=== PATIENT | male | born 1965 | race Caucasian/White ===

== ENCOUNTER 2016-05-15 02:26 | Emergency (ER) | payer OTHER ==
[~2016-05-15] VITALS: Ht 162.6 cm; Wt 61.2 kg
[~2016-05-15 02:26] MED LIST: OLAN5TAB3
[2016-05-15 03:47] LABS: BASOPHILS # (AUTO) 0.1 /CMM (0.0-0.2); DIFF TOTAL % 100 %; EOSINOPHILS # (AUTO) 0.2 /CMM (0.0-0.7); EOSINOPHILS % (AUTO) 3.6 % (0.0-6.0); HEMATOCRIT 42 % (39-51); HEMOGLOBIN 14.3 g/dL (13.5-17.5); MEAN CORPUSCULAR HEMOGLOBIN 34 PG (26.0-33.0); MEAN CORPUSCULAR HGB CONC 35 g/dl (31.0-36.0); MEAN CORPUSCULAR VOLUME 98 fL (80-96); MONOCYTES # (AUTO) 0.5 /CMM (0.1-1.30); MONOCYTES % (AUTO) 9.9 % (2.0-12.0); NEUTROPHILS # (AUTO) 2.7 /CMM (1.8-8.9); NEUTROPHILS % (AUTO) 48.5 % (43.0-81.0); PLATELET COUNT (AUTO) 257 /CMM (150-450); RED BLOOD CELL COUNT(AUTO) 4.25 MIL/uL (4.5-6.0); WHITE BLOOD COUNT (AUTO) 5.5 K/uL (4.3-11.0)
[2016-05-15 03:54] LABS: ADD UA MICROSCOPIC NO; KETONES,URINE NEGATIVE (NEGATIVE); LEUKOCYTE ESTERASE ,URINE NEGATIVE (NEGATIVE)
[2016-05-15 04:07] LABS: ALANINE AMINOTRANSFERASE 42 U/L (12-78); ALBUMIN 3.6 g/dL (3.4-5.0); ANION GAP 12 (5-14); ASPARTATE AMINOTRANSFERASE 16 U/L (15-37); BILIRUBIN,DIRECT 0.1 mg/dL (0.0-0.2); BILIRUBIN,TOTAL 0.4 mg/dL (0.2-1.0); CALCIUM, SERUM 8.7 mg/dL (8.5-10.1); CARBON DIOXIDE 28 mmol/L (21-32); CHLORIDE 103 mmol/L (98-107); CREATININE 1.2 mg/dL (0.6-1.3); GFR 64 mL/min (>60); GLUCOSE 112 mg/dL (74-106); INDIRECT BILIRUBIN 0.3 mg/dL (0.0-1.1); POTASSIUM 3.7 mmol/L (3.5-5.1); SALICYLATE 3.2 mg/dL (2.8-20.0); SODIUM SERUM 139 mmol/L (136-145); TOTAL PROTEIN, SERUM 7.2 g/dL (6.4-8.2); UREA NITROGEN, BLOOD 10 mg/dL (7-18)
[2016-05-15 04:19] LABS: PHENCYCLIDINE SCREEN,URINE NEGATIVE (NEGATIVE)
[2016-05-15 04:27] LABS: CANNABINOID, URINE POSITIVE (NEGATIVE)
[2016-05-15 04:57] LABS: ACETAMINOPHEN 0 ug/ml (10-30)
[2016-05-15 06:55] VITALS: BP 156/96
== END 2016-05-15 06:06 | disposition home or self-care (01) ==
LOC: ER 02:26
DX: F32.9 Major depressive disorder, single episode, unspecified (principal); F19.10 Other psychoactive substance abuse, uncomplicated; B19.20 Unspecified viral hepatitis C without hepatic coma; K21.9 Gastro-esophageal reflux disease without esophagitis; F17.200 Nicotine dependence, unspecified, uncomplicated; F31.9 Bipolar disorder, unspecified
CPT/HCPCS: 36415; 80048-TC; 80076-TC; 80305; 81000-TC; 85025-TC; A4606; G0480; G6039-TC; Z7610

== ENCOUNTER 2016-07-04 18:57 | Emergency (ER) | payer OTHER ==
[~2016-07-04] VITALS: Ht 162.6 cm; Wt 61.2 kg
[2016-07-04 19:02] VITALS: BP 141/93
== END 2016-07-04 19:25 | disposition home or self-care (01) ==
LOC: ER 19:03
DX: R05 Cough (principal); K21.9 Gastro-esophageal reflux disease without esophagitis; F31.9 Bipolar disorder, unspecified; F17.210 Nicotine dependence, cigarettes, uncomplicated
CPT/HCPCS: 99283; 99406; A4606; Z7610

== ENCOUNTER 2016-08-31 13:26 | Emergency (ER) | payer OTHER ==
[~2016-08-31] VITALS: Ht 160 cm; Wt 68.0 kg
--- NOTE | 2016-08-31 14:02 | NUR ---
pt ambulatory to er bed 19. requesting med refill. anxious states suicidal w/ no specific plan at this time. states no meds for 7 days.placed on monitor. stable vitals. awaiting md danielle.
[2016-08-31 14:20] LABS: BASOPHILS % (AUTO) 0.4 % (0.0-2.0); EOSINOPHILS # (AUTO) 0.1 /CMM (0.0-0.7); HEMATOCRIT 41 % (39-51); HEMOGLOBIN 14.1 g/dL (13.5-17.5); MEAN CORPUSCULAR HEMOGLOBIN 33 PG (26.0-33.0); MEAN CORPUSCULAR HGB CONC 34 g/dl (31.0-36.0); MEAN CORPUSCULAR VOLUME 97 fL (80-96); MONOCYTES # (AUTO) 0.5 /CMM (0.1-1.30); MONOCYTES % (AUTO) 8.6 % (2.0-12.0); NEUTROPHILS # (AUTO) 3.2 /CMM (1.8-8.9); PLATELET COUNT (AUTO) 240 /CMM (150-450); RDW COEFFICIENT OF VARIATION 12.6 (11.5-15.0); RED BLOOD CELL COUNT(AUTO) 4.24 MIL/uL (4.5-6.0); WHITE BLOOD COUNT (AUTO) 5.8 K/uL (4.3-11.0)
[2016-08-31 14:30] LABS: CALCIUM, SERUM 8.9 mg/dL (8.5-10.1); CARBON DIOXIDE 30 mmol/L (21-32); CHLORIDE 104 mmol/L (98-107); CREATININE 1.1 mg/dL (0.6-1.3); GLUCOSE 128 mg/dL (74-106); POTASSIUM 3.5 mmol/L (3.5-5.1); SODIUM SERUM 138 mmol/L (136-145); UREA NITROGEN, BLOOD 18 mg/dL (7-18)
[2016-08-31 14:36] LABS: ACETAMINOPHEN < 10 ug/ml (10-30); ALANINE AMINOTRANSFERASE 48 U/L (12-78); ALBUMIN 3.9 g/dL (3.4-5.0); ALCOHOL, BLOOD < 3 mg/dL (0-0); ALKALINE PHOSPHATASE 66 U/L (46-116); ASPARTATE AMINOTRANSFERASE 32 U/L (15-37); BILIRUBIN,DIRECT 0.1 mg/dL (0.0-0.2); BILIRUBIN,TOTAL 0.5 mg/dL (0.2-1.0); SALICYLATE 2.1 mg/dL (2.8-20.0); TOTAL PROTEIN, SERUM 7.5 g/dL (6.4-8.2)
--- NOTE | 2016-08-31 14:38 | NUR ---
pt still unable to provide urine specimen at this time.
[2016-08-31 15:21] LABS: APPEARANCE,URINE Clear (CLEAR); BILIRUBIN,URINE Negative (NEGATIVE); BLOOD, URINE Negative Ery/uL (NEGATIVE); COLOR,URINE Yellow (YELLOW); KETONES,URINE Negative (NEGATIVE); LEUKOCYTE ESTERASE ,URINE Negative (NEGATIVE); NITRITE, URINE Negative (NEGATIVE); PROTEIN,URINE Negative (NEGATIVE); UGLUCOSE Negative (NEGATIVE)
[2016-08-31 15:34] LABS: BACTERIA,URINE None seen /HPF (None Seen); RBC,URINE 0-2 /HPF (0-2); SQUAMOUS EPITHELIAL CELL,UR Rare /HPF (None Seen); WBC,URINE 0-2 /HPF (0-3)
--- NOTE | 2016-08-31 15:41 | NUR ---
CALLED CLINICAL CLINICIAN EDGARDO, 1HR ETA WAS GIVEN.
--- NOTE | 2016-08-31 16:32 | NUR ---
joanna rn at bedside for psych eval.
--- NOTE | 2016-08-31 18:50 | NUR ---
resting in bed. provided w/ sandwich and drinks. cooperative to staff. will monitor closely.
[2016-08-31] MEDS ORDERED: OLANZAPINE 5 MG TABLET PO ONE (19:00)
[2016-08-31] MEDS ORDERED: OLANZAPINE 5 MG TABLET ONE (19:00)
--- NOTE | 2016-08-31 19:19 | NUR ---
CALLED MED RESPONSE ETA OF 3779 WAS GIVEN.
--- NOTE | 2016-08-31 21:41 | NUR ---
MED RESPOSE CALLED AND DELAYED CALL, ETA OF 5955.
--- NOTE | 2016-08-31 23:57 | NUR ---
Thomas gallo in [facility] - 09/01/16 at 0017 by FRIDA report given to katlyn sanches.
--- NOTE | 2016-09-01 00:21 | NUR ---
pt transfered to [facility] for voluntary psych admission. trasported in stable condition.
[2016-09-01 00:23] VITALS: BP 152/76
== END 2016-09-01 00:23 ==
LOC: ER 13:30
DX: R45.851 Suicidal ideations (principal); F15.10 Other stimulant abuse, uncomplicated; F17.200 Nicotine dependence, unspecified, uncomplicated
CPT/HCPCS: 36415; 80048-TC; 80076-TC; 80305; 81000-TC; 85025-TC; A4606; G0480; Z7610

== ENCOUNTER 2017-03-27 17:40 | Emergency (ER) | payer OTHER ==
[~2017-03-27] VITALS: Ht 167.6 cm; Wt 65.8 kg
--- NOTE | 2017-03-27 19:42 | NUR ---
CALLED FOR TRIAGE; X4; NOT IN LOBBY
[2017-03-27 19:59] VITALS: BP 138/90
--- NOTE | 2017-03-27 22:50 | NUR ---
STARTED USING AGGRESSIVE LANGUAGE AGAINST SECURITY AND GOT ESCORTED OUT OF THE PREMISES.
== END 2017-03-27 22:52 | disposition left against medical advice (07) ==
LOC: ER 17:45
DX: Z53.21 Procedure and treatment not carried out due to patient leaving prior to being seen by health care provider (principal)
CPT/HCPCS: A4606; Z7610

== ENCOUNTER 2017-06-22 04:37 | Emergency (ER) | payer OTHER ==
[~2017-06-22] VITALS: Ht 162.6 cm; Wt 65.8 kg
--- NOTE | 2017-06-22 04:47 | NUR ---
PT AMBULATORY TO ER BED 13. BIBSELF, WANTS TO BE MEDICALLY CLEARED TO GO TO [facility]. [facility]. +SI/-HI. PLAN OF RUNNING OUT INTO TRAFFIC. PT PLACED ON TURKEY FARMER. VSS/RESP EVEN UNLABORED/NAD NOTED/SKIN WARM AND DRY/DENIES N-V-D/AFEBRILE/AOX4. AWAITING MD PAYTON.
--- NOTE | 2017-06-22 05:34 | NUR ---
LAB AT BEDSIDE FOR DRAW.
[2017-06-22 06:00] LABS: BASOPHILS % (AUTO) 0.5 % (0.0-2.0); EOSINOPHILS % (AUTO) 0.4 % (0.0-6.0); HEMATOCRIT 39 % (39-51); HEMOGLOBIN 13.5 g/dL (13.5-17.5); LYMPHOCYTES # (AUTO) 1.8 /CMM (0.8-4.8); LYMPHOCYTES % (AUTO) 22.5 % (20.0-44.0); MEAN CORPUSCULAR HGB CONC 35 g/dl (31.0-36.0); MEAN CORPUSCULAR VOLUME 97 fL (80-96); MONOCYTES # (AUTO) 0.7 /CMM (0.1-1.30); NEUTROPHILS # (AUTO) 5.6 /CMM (1.8-8.9); NEUTROPHILS % (AUTO) 68.6 % (43.0-81.0); PLATELET COUNT (AUTO) 218 /CMM (150-450); RDW COEFFICIENT OF VARIATION 13.6 (11.5-15.0); RED BLOOD CELL COUNT(AUTO) 4.02 MIL/uL (4.5-6.0); WHITE BLOOD COUNT (AUTO) 8.1 K/uL (4.3-11.0)
[2017-06-22] MEDS ORDERED: PAROXETINE HCL 10 MG TABLET PO STA (06:12)
[2017-06-22 06:16] LABS: CALCIUM, SERUM 9.3 mg/dL (8.5-10.1); CARBON DIOXIDE 25 mmol/L (21-32); CHLORIDE 104 mmol/L (98-107); GLUCOSE 115 mg/dL (74-106); POTASSIUM 3.4 mmol/L (3.5-5.1); SODIUM SERUM 141 mmol/L (136-145); UREA NITROGEN, BLOOD 25 mg/dL (7-18)
[2017-06-22 06:18] LABS: ACETAMINOPHEN 3 ug/ml (10-30); ALANINE AMINOTRANSFERASE 34 U/L (12-78); ALBUMIN 4.1 g/dL (3.4-5.0); ALCOHOL, BLOOD < 3 mg/dL (0-0); ALKALINE PHOSPHATASE 68 U/L (46-116); ASPARTATE AMINOTRANSFERASE 23 U/L (15-37); BILIRUBIN,DIRECT 0.1 mg/dL (0.0-0.2); BILIRUBIN,TOTAL 0.6 mg/dL (0.2-1.0); SALICYLATE 4.1 mg/dL (2.8-20.0); TOTAL PROTEIN, SERUM 7.5 g/dL (6.4-8.2)
[2017-06-22] MEDS ORDERED: OLANZAPINE 5 MG TABLET PO ONE (06:30)
[2017-06-22 06:35] LABS: APPEARANCE,URINE CLEAR (CLEAR); BILIRUBIN,URINE NEGATIVE (NEGATIVE); BLOOD, URINE NEGATIVE Ery/uL (NEGATIVE); COLOR,URINE YELLOW (YELLOW); KETONES,URINE TRACE (NEGATIVE); LEUKOCYTE ESTERASE ,URINE NEGATIVE (NEGATIVE); NITRITE, URINE NEGATIVE (NEGATIVE); PH,URINE 5.5 (5.0-8.0); PROTEIN,URINE TRACE mg/dl (NEGATIVE); UGLUCOSE NEGATIVE (NEGATIVE); UROBILINOGEN,URINE 0.2 EU/dL (0.2)
[2017-06-22] MEDS ORDERED: PAROXETINE HCL 10 MG TABLET ONE (06:39)
[2017-06-22] MEDS ORDERED: OLANZAPINE 5 MG TABLET ONE ×2 (06:42→06:45)
--- NOTE | 2017-06-22 07:12 | NUR ---
ENDORSED TO TONNY SAM FOR YANY.
--- NOTE | 2017-06-22 07:13 | NUR ---
RECEIVED REPORT FOR YANY.
[2017-06-22 07:16] LABS: BACTERIA,URINE Few /HPF (None Seen); RBC,URINE 0-2 /HPF (0-2); SQUAMOUS EPITHELIAL CELL,UR Few /HPF (None Seen)
--- NOTE | 2017-06-22 08:04 | NUR ---
SPOKE WITH INTAKE AT [facility], REQUESTING PAPERWORK TO BE FAXED TO CHECK BED AVAILABILITY. PAPERWORK FAXED, AWAITING RESPONSE.
--- NOTE | 2017-06-22 12:30 | NUR ---
[facility] CALLED ACCEPTED BY EXT 250
--- NOTE | 2017-06-22 13:29 | NUR ---
Patient discharged to [facility] in stable condition. Written and verbal after care instructions given. Patient verbalizes understanding of instruction.
[2017-06-22 13:31] VITALS: BP 148/92
== END 2017-06-22 13:31 ==
LOC: ER 04:39
DX: R45.851 Suicidal ideations (principal); F31.9 Bipolar disorder, unspecified; F15.10 Other stimulant abuse, uncomplicated; I10 Essential (primary) hypertension; K21.9 Gastro-esophageal reflux disease without esophagitis; F17.200 Nicotine dependence, unspecified, uncomplicated; Z86.19 Personal history of other infectious and parasitic diseases
CPT/HCPCS: 36415; 80048; 80076; 80305; 80329; 81001; 85025; 99285; A4606; G0480 ×2; Z7610; 81000-TC

== ENCOUNTER 2017-08-04 19:05 | Emergency (ER) | payer OTHER ==
[~2017-08-04] VITALS: Ht 162.6 cm; Wt 59.0 kg
[2017-08-04 19:09] VITALS: BP 131/90
--- NOTE | 2017-08-04 19:20 | NUR ---
PT REC'D AN EGG SALAD SANDWICH AND JUICE.
== END 2017-08-04 20:14 | disposition home or self-care (01) ==
LOC: ER 19:22
DX: Z76.0 Encounter for issue of repeat prescription (principal); F41.9 Anxiety disorder, unspecified; F31.9 Bipolar disorder, unspecified; I10 Essential (primary) hypertension; K21.9 Gastro-esophageal reflux disease without esophagitis; F17.200 Nicotine dependence, unspecified, uncomplicated; Z86.19 Personal history of other infectious and parasitic diseases
CPT/HCPCS: A4606; Z7610

== ENCOUNTER 2017-08-25 18:16 | Emergency (ER) | payer OTHER ==
[~2017-08-25] VITALS: Ht 162.6 cm; Wt 59.0 kg
[2017-08-25 18:19] VITALS: BP 162/84
--- NOTE | 2017-08-25 18:20 | NUR ---
PT CAME IN WITH C/O BEING SI WITH PLAN TO OVERDOSE W/ METH, HI. "I WENT TO [facility] AND THEY WOULD NOT HELP ME". SEEN BY FOR STEPHENAL. PT DIRECTABLE, AAXO3. NAD NOTED. VSS. SAFETY AND COMFORT MEASURES PROVIDED. WILL MONITOR.
[2017-08-25 18:56] LABS: BASOPHILS # (AUTO) 0.1 /CMM (0.0-0.2); BASOPHILS % (AUTO) 0.9 % (0.0-2.0); EOSINOPHILS % (AUTO) 5.7 % (0.0-6.0); HEMATOCRIT 41 % (39-51); HEMOGLOBIN 14.4 g/dL (13.5-17.5); LYMPHOCYTES # (AUTO) 1.7 /CMM (0.8-4.8); LYMPHOCYTES % (AUTO) 27.8 % (20.0-44.0); MEAN CORPUSCULAR HGB CONC 35 g/dl (31.0-36.0); MEAN CORPUSCULAR VOLUME 94 fL (80-96); MONOCYTES # (AUTO) 0.6 /CMM (0.1-1.30); MONOCYTES % (AUTO) 10.3 % (2.0-12.0); NEUTROPHILS # (AUTO) 3.4 /CMM (1.8-8.9); NEUTROPHILS % (AUTO) 55.3 % (43.0-81.0); PLATELET COUNT (AUTO) 233 /CMM (150-450); RDW COEFFICIENT OF VARIATION 12.4 (11.5-15.0); RED BLOOD CELL COUNT(AUTO) 4.34 MIL/uL (4.5-6.0); WHITE BLOOD COUNT (AUTO) 6.3 K/uL (4.3-11.0)
[2017-08-25 19:15] LABS: APPEARANCE,URINE Clear (CLEAR); BILIRUBIN,URINE Negative (NEGATIVE); BLOOD, URINE Negative Ery/uL (NEGATIVE); COLOR,URINE Yellow (YELLOW); KETONES,URINE Negative (NEGATIVE); LEUKOCYTE ESTERASE ,URINE Trace (NEGATIVE); NITRITE, URINE Negative (NEGATIVE); PROTEIN,URINE Negative (NEGATIVE); UGLUCOSE Negative (NEGATIVE); UROBILINOGEN,URINE 0.2 EU/dL (0.2)
[2017-08-25 19:20] LABS: ALANINE AMINOTRANSFERASE 65 U/L (12-78); ALBUMIN 3.7 g/dL (3.4-5.0); ALKALINE PHOSPHATASE 70 U/L (46-116); ASPARTATE AMINOTRANSFERASE 28 U/L (15-37); BILIRUBIN,DIRECT 0.1 mg/dL (0.0-0.2); BILIRUBIN,TOTAL 0.6 mg/dL (0.2-1.0); CALCIUM, SERUM 9.2 mg/dL (8.5-10.1); CARBON DIOXIDE 29 mmol/L (21-32); CHLORIDE 97 mmol/L (98-107); CREATININE 1.3 mg/dL (0.6-1.3); GLUCOSE 161 mg/dL (74-106); POTASSIUM 3.3 mmol/L (3.5-5.1); SODIUM SERUM 131 mmol/L (136-145); TOTAL PROTEIN, SERUM 7.7 g/dL (6.4-8.2); UREA NITROGEN, BLOOD 28 mg/dL (7-18)
[2017-08-25 19:21] LABS: SALICYLATE 1.4 mg/dL (2.8-20.0)
[2017-08-25 19:22] LABS: ACETAMINOPHEN < 2 ug/ml (10-30)
[2017-08-25 19:25] LABS: BACTERIA,URINE Few /HPF (None Seen); RBC,URINE NONE SEEN /HPF (0-2); SQUAMOUS EPITHELIAL CELL,UR Few /HPF (None Seen)
[2017-08-25 19:36] LABS: ALCOHOL, BLOOD < 3 mg/dL (0-0)
--- NOTE | 2017-08-25 19:50 | NUR ---
Patient eloped from facility. ER MD notified.
[2017-08-25] MEDS: IV NS 0.9% 1,000 ML BAG IV ONE (20:00)
== END 2017-08-25 20:00 | disposition left against medical advice (07) ==
LOC: ER 18:17
DX: R45.851 Suicidal ideations (principal); F31.9 Bipolar disorder, unspecified; I10 Essential (primary) hypertension; K21.9 Gastro-esophageal reflux disease without esophagitis; F17.200 Nicotine dependence, unspecified, uncomplicated; F12.10 Cannabis abuse, uncomplicated; F11.10 Opioid abuse, uncomplicated; Z86.19 Personal history of other infectious and parasitic diseases
CPT/HCPCS: 36415; 80048-TC; 80076-TC; 80305; 81000-TC; 85025-TC; A4606; G0480; Z7610

== ENCOUNTER 2017-09-02 15:31 | Emergency (ER) | payer OTHER ==
[~2017-09-02] VITALS: Ht 162.6 cm; Wt 79.4 kg
--- NOTE | 2017-09-02 15:35 | NUR ---
[id number], FEELING SUICIDAL AFTER USING METH, NAD NOTED, VSS, RESP EVEN AND UNLABORED, PT WAS PUT ON MONITOR, WAITING FOR MD PAYTON
[2017-09-02 15:49] LABS: BASOPHILS # (AUTO) 0.2 /CMM (0.0-0.2); BASOPHILS % (AUTO) 2.8 % (0.0-2.0); EOSINOPHILS % (AUTO) 1.2 % (0.0-6.0); HEMATOCRIT 45 % (39-51); HEMOGLOBIN 15.7 g/dL (13.5-17.5); LYMPHOCYTES # (AUTO) 1.8 /CMM (0.8-4.8); LYMPHOCYTES % (AUTO) 22.1 % (20.0-44.0); MEAN CORPUSCULAR HGB CONC 35 g/dl (31.0-36.0); MEAN CORPUSCULAR VOLUME 95 fL (80-96); MONOCYTES # (AUTO) 0.7 /CMM (0.1-1.30); MONOCYTES % (AUTO) 8.3 % (2.0-12.0); NEUTROPHILS # (AUTO) 5.3 /CMM (1.8-8.9); NEUTROPHILS % (AUTO) 65.6 % (43.0-81.0); RDW COEFFICIENT OF VARIATION 12.4 (11.5-15.0); RED BLOOD CELL COUNT(AUTO) 4.76 MIL/uL (4.5-6.0)
[2017-09-02 15:50] LABS: PLATELET COUNT (AUTO) 288 /CMM (150-450); WHITE BLOOD COUNT (AUTO) 7.9 K/uL (4.3-11.0)
[2017-09-02 16:02] LABS: ALANINE AMINOTRANSFERASE 44 U/L (12-78); ALBUMIN 4.2 g/dL (3.4-5.0); ALKALINE PHOSPHATASE 81 U/L (46-116); ASPARTATE AMINOTRANSFERASE 22 U/L (15-37); BILIRUBIN,DIRECT 0.2 mg/dL (0.0-0.2); BILIRUBIN,TOTAL 0.9 mg/dL (0.2-1.0); CALCIUM, SERUM 10.6 mg/dL (8.5-10.1); CARBON DIOXIDE 26 mmol/L (21-32); CHLORIDE 100 mmol/L (98-107); CREATININE 1.3 mg/dL (0.6-1.3); GLUCOSE 150 mg/dL (74-106); SODIUM SERUM 139 mmol/L (136-145); TOTAL PROTEIN, SERUM 8.6 g/dL (6.4-8.2); UREA NITROGEN, BLOOD 17 mg/dL (7-18)
[2017-09-02 16:03] LABS: ACETAMINOPHEN < 2 ug/ml (10-30); POTASSIUM 2.7 mmol/L (3.5-5.1); SALICYLATE 1.2 mg/dL (2.8-20.0)
[2017-09-02 16:04] LABS: ALCOHOL, BLOOD < 3 mg/dL (0-0)
[2017-09-02] MEDS ORDERED: POTASSIUM CHLORIDE 20 MEQ TAB.PRT.SR PO ONE ×4 (16:29→19:30)
[2017-09-02 16:43] LABS: APPEARANCE,URINE Clear (CLEAR); BILIRUBIN,URINE Negative (NEGATIVE); BLOOD, URINE Negative Ery/uL (NEGATIVE); COLOR,URINE Yellow (YELLOW); KETONES,URINE Negative (NEGATIVE); LEUKOCYTE ESTERASE ,URINE Negative (NEGATIVE); NITRITE, URINE Negative (NEGATIVE); PROTEIN,URINE 100 mg/dl (NEGATIVE); UGLUCOSE Negative (NEGATIVE); UROBILINOGEN,URINE 0.2 EU/dL (0.2)
[2017-09-02 16:49] LABS: BACTERIA,URINE None seen /HPF (None Seen); RBC,URINE 0-2 /HPF (0-2); SPERM,URINE Many /HPF (None Seen); SQUAMOUS EPITHELIAL CELL,UR Few /HPF (None Seen); WBC,URINE 0-3 /HPF (0-3)
--- NOTE | 2017-09-02 20:18 | NUR ---
Called [facility] spoke with Shira perez, she states they are waiting for a discharged and will call back in 15 min to notify us when there will be an available bed.
--- NOTE | 2017-09-02 21:40 | NUR ---
CALLED AMBULNS FOR TRANSPORTATION GOING TO [facility] ETA 90 MIN TRIP# [id number]
[2017-09-02 22:43] VITALS: BP 138/82
--- NOTE | 2017-09-02 22:52 | NUR ---
REPORT GIVEN TO TONNY WELCH.
== END 2017-09-02 23:25 ==
LOC: ER 15:33
DX: R45.851 Suicidal ideations (principal); E87.6 Hypokalemia; F15.10 Other stimulant abuse, uncomplicated; F12.10 Cannabis abuse, uncomplicated; I10 Essential (primary) hypertension; K21.9 Gastro-esophageal reflux disease without esophagitis; F31.9 Bipolar disorder, unspecified; F17.200 Nicotine dependence, unspecified, uncomplicated; Z86.19 Personal history of other infectious and parasitic diseases
CPT/HCPCS: 36415; 80048-TC; 80076-TC; 80305; 81000-TC; 83735-TC; 85025-TC; A4606; G0480; Z7610

== ENCOUNTER 2018-08-15 11:59 | Emergency (ER) ==
--- NOTE | 2018-08-15 14:45 | NUR ---
PT CALLED IN WAITING ROOM NO ANSWER.
--- NOTE | 2018-08-15 15:08 | NUR ---
Multiple calls NO response. Rosalind
[2018-08-16] MEDS ORDERED: FLUO10CA26 PO (13:37)
[2018-08-16] MEDS ORDERED: NAPR500T6 PO (13:37)
[2018-08-16] MEDS ORDERED: OLAN5TAB3 PO (13:58)
[2018-08-16] MEDS ORDERED: PARO10TA86 PO (13:58)
== END 2018-08-15 15:10 | disposition home or self-care (01) ==
LOC: ER 12:03
DX: Z53.21 Procedure and treatment not carried out due to patient leaving prior to being seen by health care provider (principal)

== ENCOUNTER → 2018-08-16 | Emergency (ER) ==
[~2018-08-16] VITALS: Ht 152.4 cm; Wt 62.1 kg
[~2018-08-16] MED LIST changes: +FLUO10CA26 PO; +NAPR500T6 PO; +OLAN5TAB3 PO; +OLANZAPINE 5 MG TABLET ONE; +OLANZAPINE 5 MG TABLET PO ONE; +PARO10TA86 PO; +PAROXETINE HCL 10 MG TABLET PO ONE; +PAROXETINE HCL 10 MG TABLET PO SCH
--- NOTE | 2018-08-16 10:47 | NUR ---
PT BIBSELF FOR S/I WANTING TO CUT WRISTS, PT AMBUALTORY TO BED 13, S/I PRECAUTIONS INTIATED. NAD NOTED, PENDING MD PAYTON
[2018-08-16 11:18] LABS: BASOPHILS % (AUTO) 0.7 % (0.0-2.0); EOSINOPHILS % (AUTO) 0.6 % (0.0-6.0); HEMATOCRIT 43 % (39-51); LYMPHOCYTES # (AUTO) 1.1 /CMM (0.8-4.8); LYMPHOCYTES % (AUTO) 21.6 % (20.0-44.0); MEAN CORPUSCULAR HGB CONC 35 g/dl (31.0-36.0); MEAN CORPUSCULAR VOLUME 100 fL (80-96); MONOCYTES # (AUTO) 0.3 /CMM (0.1-1.30); MONOCYTES % (AUTO) 5.8 % (2.0-12.0); NEUTROPHILS # (AUTO) 3.6 /CMM (1.8-8.9); NEUTROPHILS % (AUTO) 71.3 % (43.0-81.0); PLATELET COUNT (AUTO) 252 /CMM (150-450); RED BLOOD CELL COUNT(AUTO) 4.32 MIL/uL (4.5-6.0)
[2018-08-16 11:23] LABS: APPEARANCE,URINE Clear (CLEAR); BILIRUBIN,URINE Negative (NEGATIVE); BLOOD, URINE Negative Ery/uL (NEGATIVE); COLOR,URINE Yellow (YELLOW); KETONES,URINE Negative (NEGATIVE); LEUKOCYTE ESTERASE ,URINE Negative (NEGATIVE); NITRITE, URINE Negative (NEGATIVE); PH,URINE 6.5 (5.0-8.0); PROTEIN,URINE Negative (NEGATIVE); UGLUCOSE Negative (NEGATIVE); UROBILINOGEN,URINE 0.2 EU/dL (0.2)
[2018-08-16 11:41] LABS: CALCIUM, SERUM 8.9 mg/dL (8.5-10.1); CARBON DIOXIDE 28 mmol/L (21-32); CHLORIDE 102 mmol/L (98-107); GLUCOSE 132 mg/dL (74-106); POTASSIUM 3.7 mmol/L (3.5-5.1); SODIUM SERUM 138 mmol/L (136-145); UREA NITROGEN, BLOOD 14 mg/dL (7-18)
[2018-08-16 11:47] LABS: ACETAMINOPHEN < 2 ug/ml (10-30); ALANINE AMINOTRANSFERASE 65 U/L (12-78); ALBUMIN 3.5 g/dL (3.4-5.0); ALCOHOL, BLOOD < 3 mg/dL (0-0); ALKALINE PHOSPHATASE 69 U/L (46-116); ASPARTATE AMINOTRANSFERASE 26 U/L (15-37); BILIRUBIN,DIRECT 0.1 mg/dL (0.0-0.2); BILIRUBIN,TOTAL 0.3 mg/dL (0.2-1.0); TOTAL PROTEIN, SERUM 7.1 g/dL (6.4-8.2)
--- NOTE | 2018-08-16 12:13 | NUR ---
BUSINESS SUPPORT ADMINISTRATOR EDGARDO ETA 1330 HOURS
--- NOTE | 2018-08-16 16:02 | NUR ---
TRE TO [facility] PURA SIMONS [id number] TRIP#[id number]
--- NOTE | 2018-08-16 16:12 | NUR ---
REPORT GIVEN TO KAILA GAYLE AT [facility] FOR YANY
--- NOTE | 2018-08-16 18:15 | NUR ---
PT LEFT TO [facility] VIA PRIVATE AMBULANCE, PT LEFT IN STABLE CONDITION, VSS, NAD NOTED. REPORT GIVEN TO AMBULANCE STAFF.
[2018-08-16 18:17] VITALS: BP 154/90
== END | disposition short-term general hospital (02) ==
LOC: ER 10:41
DX: F32.9 Major depressive disorder, single episode, unspecified (principal); F15.10 Other stimulant abuse, uncomplicated; I10 Essential (primary) hypertension; K21.9 Gastro-esophageal reflux disease without esophagitis; F17.200 Nicotine dependence, unspecified, uncomplicated; Z86.19 Personal history of other infectious and parasitic diseases; Z79.899 Other long term (current) drug therapy
CPT/HCPCS: 36415; 80048; 80076; 80305; 80307; 80329; 81001; 85025; 99285; G0480; 81000-TC

== ENCOUNTER 2018-08-28 09:57 | Emergency (ER) | payer OTHER ==
[~2018-08-28] VITALS: Ht 160 cm; Wt 61.2 kg
[~2018-08-28 09:57] MED LIST changes: -FLUO10CA26 PO; -NAPR500T6 PO; -OLAN5TAB3; -OLANZAPINE 5 MG TABLET ONE; -OLANZAPINE 5 MG TABLET PO ONE; -PAROXETINE HCL 10 MG TABLET PO ONE; -PAROXETINE HCL 10 MG TABLET PO SCH
--- NOTE | 2018-08-28 10:08 | NUR ---
PT BIBSELF FOR SI, PLANS TO USE RAZOR BLADES; PT AAOX4, SUICIDE PRECAUTIONS STARTED, PT TO BED 14, VSS, NAD NOTED, PENDING MD PAYTON
[2018-08-28 10:31] LABS: BASOPHILS % (AUTO) 0.6 % (0.0-2.0); EOSINOPHILS % (AUTO) 1.5 % (0.0-6.0); HEMATOCRIT 41 % (39-51); HEMOGLOBIN 14.3 g/dL (13.5-17.5); LYMPHOCYTES % (AUTO) 21.7 % (20.0-44.0); MEAN CORPUSCULAR HGB CONC 35 g/dl (31.0-36.0); MEAN CORPUSCULAR VOLUME 99 fL (80-96); MONOCYTES # (AUTO) 0.4 /CMM (0.1-1.30); MONOCYTES % (AUTO) 7.6 % (2.0-12.0); NEUTROPHILS # (AUTO) 3.2 /CMM (1.8-8.9); NEUTROPHILS % (AUTO) 68.6 % (43.0-81.0); PLATELET COUNT (AUTO) 227 /CMM (150-450); RED BLOOD CELL COUNT(AUTO) 4.11 MIL/uL (4.5-6.0); WHITE BLOOD COUNT (AUTO) 4.7 K/uL (4.3-11.0)
[2018-08-28 10:38] LABS: CALCIUM, SERUM 8.6 mg/dL (8.5-10.1); CARBON DIOXIDE 28 mmol/L (21-32); CHLORIDE 104 mmol/L (98-107); CREATININE 0.9 mg/dL (0.6-1.3); GLUCOSE 127 mg/dL (74-106); POTASSIUM 4.1 mmol/L (3.5-5.1); SODIUM SERUM 138 mmol/L (136-145); UREA NITROGEN, BLOOD 17 mg/dL (7-18)
[2018-08-28 10:43] LABS: ALANINE AMINOTRANSFERASE 63 U/L (12-78); ALBUMIN 3.3 g/dL (3.4-5.0); ALCOHOL, BLOOD < 3 mg/dL (0-0); ALKALINE PHOSPHATASE 66 U/L (46-116); ASPARTATE AMINOTRANSFERASE 26 U/L (15-37); BILIRUBIN,DIRECT 0.1 mg/dL (0.0-0.2); BILIRUBIN,TOTAL 0.3 mg/dL (0.2-1.0); SALICYLATE 1.7 mg/dL (2.8-20.0); TOTAL PROTEIN, SERUM 6.7 g/dL (6.4-8.2)
[2018-08-28 10:44] LABS: ACETAMINOPHEN 0 ug/ml (10-30)
[2018-08-28 11:10] LABS: APPEARANCE,URINE Clear (CLEAR); BILIRUBIN,URINE Negative (NEGATIVE); BLOOD, URINE Negative Ery/uL (NEGATIVE); COLOR,URINE Yellow (YELLOW); KETONES,URINE Negative (NEGATIVE); LEUKOCYTE ESTERASE ,URINE Negative (NEGATIVE); NITRITE, URINE Negative (NEGATIVE); PROTEIN,URINE Negative (NEGATIVE); UGLUCOSE Negative (NEGATIVE); UROBILINOGEN,URINE 0.2 EU/dL (0.2)
--- NOTE | 2018-08-28 11:40 | NUR ---
CALLED EMERGENCY ROOM CLERK ART FOR EVAL.
--- NOTE | 2018-08-28 11:41 | NUR ---
ART ETA 1 HR
--- NOTE | 2018-08-28 13:46 | NUR ---
PT ACCEPTED AT [facility] BY DR WELLS RN FOR REPORT [phone] EXT [phone], [facility] WILL CALL TRANSPORT.
[2018-08-28] MEDS ORDERED: AMLODIPINE BESYLATE 5 MG TABLET ONE (14:13)
[2018-08-28] MEDS ORDERED: AMLODIPINE BESYLATE 5 MG TABLET PO ONE (14:30)
[2018-08-28] MEDS ORDERED: LORAZEPAM 1 MG TABLET PO ONE (14:30)
[2018-08-28] MEDS ORDERED: LORAZEPAM 1 MG TABLET ONE (14:46)
[2018-08-28 14:53] VITALS: BP 148/88
--- NOTE | 2018-08-28 15:00 | NUR ---
PT LEFT VIA PRIVATE AMBULANCE TO [facility]; VSS, NAD. LEFT VIA GURNEY WITH 2EMTS
== END 2018-08-28 15:23 ==
LOC: ER 10:01
DX: R45.851 Suicidal ideations (principal); F19.10 Other psychoactive substance abuse, uncomplicated; I10 Essential (primary) hypertension; K21.9 Gastro-esophageal reflux disease without esophagitis; F17.200 Nicotine dependence, unspecified, uncomplicated; Z79.899 Other long term (current) drug therapy; Z86.19 Personal history of other infectious and parasitic diseases
CPT/HCPCS: 36415; 80048; 80076; 80305; 80307; 80329; 81001; 85025; 93005; 99285; G0480; 81000-TC

== ENCOUNTER 2018-09-06 11:33 | Emergency (ER) | payer OTHER ==
[~2018-09-06] VITALS: Ht 162.6 cm; Wt 61.2 kg
[2018-09-06 11:45] VITALS: BP 140/95
--- NOTE | 2018-09-06 11:50 | NUR ---
the patient wants to be admitted at [facility]- voluntary [facility] admission - but he needs to be medically cleared in the ER
[2018-09-06] MEDS ORDERED: OLANZAPINE 5 MG TABLET ONE (12:10)
[2018-09-06 12:19] LABS: BASOPHILS % (AUTO) 0.6 % (0.0-2.0); EOSINOPHILS % (AUTO) 3.2 % (0.0-6.0); HEMATOCRIT 41 % (39-51); HEMOGLOBIN 14.2 g/dL (13.5-17.5); LYMPHOCYTES # (AUTO) 1.9 /CMM (0.8-4.8); LYMPHOCYTES % (AUTO) 29.1 % (20.0-44.0); MEAN CORPUSCULAR HGB CONC 35 g/dl (31.0-36.0); MEAN CORPUSCULAR VOLUME 98 fL (80-96); MONOCYTES # (AUTO) 0.7 /CMM (0.1-1.30); MONOCYTES % (AUTO) 10.5 % (2.0-12.0); NEUTROPHILS # (AUTO) 3.6 /CMM (1.8-8.9); NEUTROPHILS % (AUTO) 56.6 % (43.0-81.0); PLATELET COUNT (AUTO) 200 /CMM (150-450); RED BLOOD CELL COUNT(AUTO) 4.15 MIL/uL (4.5-6.0); WHITE BLOOD COUNT (AUTO) 6.4 K/uL (4.3-11.0)
[2018-09-06 12:21] LABS: APPEARANCE,URINE Clear (CLEAR); BILIRUBIN,URINE Negative (NEGATIVE); BLOOD, URINE Negative Ery/uL (NEGATIVE); COLOR,URINE Yellow (YELLOW); KETONES,URINE Negative (NEGATIVE); LEUKOCYTE ESTERASE ,URINE Negative (NEGATIVE); NITRITE, URINE Negative (NEGATIVE); PROTEIN,URINE Negative (NEGATIVE); UGLUCOSE Negative (NEGATIVE); UROBILINOGEN,URINE 0.2 EU/dL (0.2)
[2018-09-06 12:27] LABS: CARBON DIOXIDE 25 mmol/L (21-32); CHLORIDE 102 mmol/L (98-107); GLUCOSE 103 mg/dL (74-106); POTASSIUM 4.4 mmol/L (3.5-5.1); SODIUM SERUM 136 mmol/L (136-145); UREA NITROGEN, BLOOD 22 mg/dL (7-18)
[2018-09-06] MEDS ORDERED: OLANZAPINE 5 MG TABLET PO ONE (12:30)
[2018-09-06 12:32] LABS: ALANINE AMINOTRANSFERASE 61 U/L (12-78); ALBUMIN 3.5 g/dL (3.4-5.0); ALCOHOL, BLOOD < 3 mg/dL (0-0); ALKALINE PHOSPHATASE 66 U/L (46-116); ASPARTATE AMINOTRANSFERASE 29 U/L (15-37); BILIRUBIN,DIRECT 0.1 mg/dL (0.0-0.2); BILIRUBIN,TOTAL 0.4 mg/dL (0.2-1.0)
[2018-09-06 12:33] LABS: ACETAMINOPHEN 0 ug/ml (10-30); SALICYLATE 0.6 mg/dL (2.8-20.0)
--- NOTE | 2018-09-06 12:50 | NUR ---
the patient eloped
--- NOTE | 2018-09-06 12:50 | NUR ---
ER provider is aware
== END 2018-09-06 13:37 | disposition left against medical advice (07) ==
LOC: ER 11:35
DX: F28 Other psychotic disorder not due to a substance or known physiological condition (principal); F15.10 Other stimulant abuse, uncomplicated; F19.10 Other psychoactive substance abuse, uncomplicated; F12.10 Cannabis abuse, uncomplicated; R45.1 Restlessness and agitation; F17.200 Nicotine dependence, unspecified, uncomplicated; I10 Essential (primary) hypertension; K21.9 Gastro-esophageal reflux disease without esophagitis; Z86.19 Personal history of other infectious and parasitic diseases; Z79.899 Other long term (current) drug therapy
CPT/HCPCS: 36415; 80048; 80076; 80305; 80307; 80329; 81001; 85025; 99284; G0480; 81000-TC

== ENCOUNTER 2019-04-16 06:56 | Emergency (ER) | payer OTHER ==
[~2019-04-16] VITALS: Ht 162.6 cm; Wt 62.6 kg
--- NOTE | 2019-04-16 07:16 | NUR ---
BIBSELF. SUICIDAL IDEATION PLANS TO CUT WRIST WITH A RAZOR BLADE. VOLUNTARY. TO ER BED 13, HOOKED TO MONITOR, CHANGED TO HOSP GOWN, PROVIDED W WARM BLANKET, AWAITING MD PAYTON. 1:1 SITTER AT BEDSIDE, WANDED BY SECURITY
--- NOTE | 2019-04-16 07:35 | NUR ---
URINE SAMPLE SENT TO LAB
--- NOTE | 2019-04-16 07:39 | NUR ---
LABOR RELATIONS OFFICER AT BEDSIDE
[2019-04-16 07:49] LABS: APPEARANCE,URINE Clear (CLEAR); BILIRUBIN,URINE Negative (NEGATIVE); BLOOD, URINE Negative Ery/uL (NEGATIVE); COLOR,URINE Yellow (YELLOW); KETONES,URINE Negative (NEGATIVE); LEUKOCYTE ESTERASE ,URINE Negative (NEGATIVE); NITRITE, URINE Negative (NEGATIVE); PH,URINE 6.5 (5.0-8.0); PROTEIN,URINE Negative (NEGATIVE); UGLUCOSE Negative (NEGATIVE); UROBILINOGEN,URINE 0.2 EU/dL (0.2)
[2019-04-16 07:53] LABS: CALCIUM, SERUM 8.7 mg/dL (8.5-10.1); CARBON DIOXIDE 29 mmol/L (21-32); CHLORIDE 102 mmol/L (98-107); CREATININE 1.1 mg/dL (0.6-1.3); GLUCOSE 140 mg/dL (74-106); SODIUM SERUM 138 mmol/L (136-145); UREA NITROGEN, BLOOD 18 mg/dL (7-18)
[2019-04-16 07:55] LABS: BASOPHILS % (AUTO) 0.7 % (0.0-2.0); EOSINOPHILS % (AUTO) 1.3 % (0.0-6.0); HEMATOCRIT 37 % (39-51); HEMOGLOBIN 13.1 g/dL (13.5-17.5); LYMPHOCYTES # (AUTO) 1.5 /CMM (0.8-4.8); MEAN CORPUSCULAR HGB CONC 35 g/dl (31.0-36.0); MEAN CORPUSCULAR VOLUME 98 fL (80-96); MONOCYTES # (AUTO) 0.5 /CMM (0.1-1.30); MONOCYTES % (AUTO) 8.3 % (2.0-12.0); NEUTROPHILS # (AUTO) 3.9 /CMM (1.8-8.9); NEUTROPHILS % (AUTO) 64.7 % (43.0-81.0); PLATELET COUNT (AUTO) 180 /CMM (150-450); RED BLOOD CELL COUNT(AUTO) 3.81 MIL/uL (4.5-6.0); WHITE BLOOD COUNT (AUTO) 6.1 K/uL (4.3-11.0)
--- NOTE | 2019-04-16 07:56 | NUR ---
Note sabino in EDM - 04/16/19 at 1137 by MALENA BIBSELMaryam. SUICIDAL IDEATION PLANS TO CUT WRIST WITH A RAZOR BLADE. VOLUNTARY. TO ER BED 13, HOOKED TO MONITOR, CHANGED TO HOSP GOW, PROVIDED W WARM BLANKET, AWAITING MD PAYTON. 1:1 SITTER AT BEDSIDE
[2019-04-16 07:59] LABS: ACETAMINOPHEN < 2 ug/ml (10-30); ALANINE AMINOTRANSFERASE 43 U/L (12-78); ALBUMIN 3.6 g/dL (3.4-5.0); ALCOHOL, BLOOD < 3 mg/dL (0-0); ALKALINE PHOSPHATASE 64 U/L (46-116); ASPARTATE AMINOTRANSFERASE 34 U/L (15-37); BILIRUBIN,DIRECT 0.1 mg/dL (0.0-0.2); BILIRUBIN,TOTAL 0.5 mg/dL (0.2-1.0); SALICYLATE 1.9 mg/dL (2.8-20.0); TOTAL PROTEIN, SERUM 7.1 g/dL (6.4-8.2)
--- NOTE | 2019-04-16 08:35 | NUR ---
Social Service consult requested by Dr. Chiu for suicidal ideations with a plan and homelessness. Per chart review and MD notes, pt is a 53-year-old male with history of depression, bipolar disorder, amphetamine abuse, presented with complaint of recurrent suicidal ideation with a plan to cut his wrists. EXTRACTOR LOADER AND UNLOADER met with the pt bedside. EXTRACTOR LOADER AND UNLOADER introduced self and explained her role. Pt is alert and oriented x 4. Pt's mood is congruent. Pt states he is homeless and has been for the past 11 years. Pt reported to be working with [facility] in regards to his housing. Pt receives $1000 in SSI per month. Pt reports to have a psychiatric diagnosis of Bipolar with psychotic features. Pt. reports to feeling suicidal with an intent to cut his wrists with a razor blade. Pt. currently denies homicidal ideations and visual/auditory hallucinations at this time. Pt reported to have been at [facility] four days ago. Pt is requesting voluntary psychiatric hospitalization. Pt is a methamphetamine user and stated he last used 9-11 days ago. EXTRACTOR LOADER AND UNLOADER provided pt with active listening and supportive counseling. Pt to be referred to [facility] for voluntary psychiatric admission. EXTRACTOR LOADER AND UNLOADER contacted Thomas at [facility] regarding voluntary admission. Per Thomas, they will have a bed for the pt. EXTRACTOR LOADER AND UNLOADER faxed clinical referral packet to [facility] intake dept
--- NOTE | 2019-04-16 10:24 | NUR ---
DEICER INSPECTOR ELECTRIC contacted [facility] intake for an updated. Per Otis, [place] location is awaiting discharges. Otis to f/u with DEICER INSPECTOR ELECTRIC.
--- NOTE | 2019-04-16 12:15 | NUR ---
PER SHLOMO GARCIA, [facility] WILL CALL US BACK FOR REPORT INFORMATION
--- NOTE | 2019-04-16 13:56 | NUR ---
AMBULANCE TRANSPORT ARRANGED ETA 1410
--- NOTE | 2019-04-16 13:59 | NUR ---
CLINICAL LABORATORY TECHNOLOGIST received a call from pt's bedside RN informing CLINICAL LABORATORY TECHNOLOGIST that pt. is refusing to go to [facility] and wants [place] or [facility] only. CLINICAL LABORATORY TECHNOLOGIST contacted Thomas to inquire if pt. will be able to go back to [facility]. Thomas informed CLINICAL LABORATORY TECHNOLOGIST he will contact intake and have the pt. go back to [facility]. CLINICAL LABORATORY TECHNOLOGIST contacted KYREE Quinn in ED with aforementioned information.
--- NOTE | 2019-04-16 14:02 | NUR ---
FARM TECHNICIAN received a call from Myrna in [facility] informing FARM TECHNICIAN that she is going contact [facility] for admittance and f/u with FARM TECHNICIAN in 15 minutes. FARM TECHNICIAN updated KYREE Quinn in ED.
--- NOTE | 2019-04-16 14:07 | NUR ---
OILFIELD PLANT AND FIELD OPERATOR received call back from Alyssa at [facility] intake informing pt has been accepted to [facility] location. Accepting Dr. Castillo Call Report to KYREE Rahman. KYREE Quinn updated in ED.
--- NOTE | 2019-04-16 14:26 | NUR ---
Patient Tranfers to outside Facility: Berenice Mendez (volutary) Patient in stable condition. Picked up by [facility]
[2019-04-16 14:27] VITALS: BP 110/79
== END 2019-04-16 14:29 ==
LOC: ER 06:56
DX: R45.851 Suicidal ideations (principal); F15.10 Other stimulant abuse, uncomplicated; F31.9 Bipolar disorder, unspecified; F12.10 Cannabis abuse, uncomplicated; I10 Essential (primary) hypertension; K21.9 Gastro-esophageal reflux disease without esophagitis; F17.200 Nicotine dependence, unspecified, uncomplicated; Y90.0 Blood alcohol level of less than 20 mg/100 ml; Z86.19 Personal history of other infectious and parasitic diseases; Z71.6 Tobacco abuse counseling; Z59.0 Homelessness; Z79.899 Other long term (current) drug therapy
CPT/HCPCS: 36415; 80048; 80076; 80305; 80307; 80329; 81001; 85025; 99285; 99406; G0480; 81000-TC